=== PATIENT | female | born 1960 | race Caucasian/White ===

== ENCOUNTER 2024-10-07 11:03 | Observation (INO) ==
[2024-10-07] MEDS ORDERED: NovoLIN R (or HumuLIN R) SUBCUT PRN (11:45)
[2024-10-07 12:13] LABS: BASOPHILS # (AUTO) 0.1 X10^3/uL (0.0-0.1); BASOPHILS % (AUTO) 1.2 % (0.2-1.0); EOSINOPHILS # (AUTO) 0.1 x10^3/uL (0.0-0.2); HEMATOCRIT 34.9 % (36.0-47.0); HEMOGLOBIN 11.5 g/dL (12.0-16.0); LYMPHOCYTES # (AUTO) 1.7 X10^3/uL (1.3-2.9); MEAN CORPUSCULAR HEMOGLOBIN 29.7 pg (27.0-34.0); MEAN CORPUSCULAR HGB CONC 32.9 g/dL (33.0-35.0); MEAN CORPUSCULAR VOLUME 90.3 fL (80.0-100.0); MEAN PLATELET VOLUME 9.4 fL (7.4-11.0); MONOCYTES # (AUTO) 0.8 x10^3/uL (0.3-0.8); MONOCYTES % (AUTO) 7.5 % (0.0-13.0); NEUTROPHILS # (AUTO) 7.5 x10^3/uL (2.2-4.8); NEUTROPHILS % (AUTO) 73.3 % (42.0-75.0); PLATELET COUNT 328 X10^3/uL (150.0-450.0); RED BLOOD COUNT 3.87 X10^6/uL (3.5-5.4); RED CELL DISTRIBUTION WIDTH 13.5 % (11.6-16.5); WHITE BLOOD COUNT 10.2 X10^3/uL (3.6-10.0)
[2024-10-07] MEDS ORDERED: LR 1,000 ML IV 1,000 ML IV ONE (12:23)
[2024-10-07 12:26] LABS: HEMOGLOBIN A1C 6.8 %
[2024-10-07 12:28] LABS: ALANINE AMINOTRANSFERASE 21 Units/L (12-78); ALBUMIN 3.5 g/dL (3.4-5.0); ALKALINE PHOSPHATASE 193 Units/L (46-116); ASPARTATE AMINO TRANSFERASE 20 Units/L (15-37); BLOOD UREA NITROGEN 40 mg/dL (7-18); CALCIUM 9.3 mg/dL (8.5-10.1); CARBON DIOXIDE 25.9 mmol/L (21-32); CHLORIDE 109 mmol/L (98-107); COR NA(FOR HYPERGLY) 144 mmol/L (136-145); CREATININE 1.63 mg/dL (0.55-1.02); GLUCOSE 134 mg/dL (65-99); POTASSIUM 4.7 mmol/L (3.5-5.1); SODIUM 143 mmol/L (136-145); TOTAL PROTEIN 9.4 g/dL (6.4-8.2); eGFR NON BLACK RACES 34 (>60)
[2024-10-07] MEDS: LR 1,000 ML IV 1,000 ML IV SCH (13:19)
[2024-10-07] MEDS: PHARMACY CONSULT - VANCOMYCIN XX SCH (13:20)
[2024-10-07] MEDS ORDERED: NORCO 7.5/325 MG TAB PO ONE (13:30)
[2024-10-07] MEDS: NEURONTIN CAP 400 MG PO SCH ×2 (13:45→21:15)
[2024-10-07] MEDS: COREG TAB 12.5 MG PO ONE (13:45)
[2024-10-07] MEDS: NORCO 7.5/325 MG TAB PO PRN (13:46)
[2024-10-07] MEDS: VANCOMYCIN IV *PREMIX 1.25 G/250 ML BAG 1.25 G/250 ML PIGGYBACK IV SCH (13:47)
--- NOTE | 2024-10-07 13:50 | EKG ---
Test Reason : osteomyelitis Blood Pressure : */* mmHG Vent. Rate : 91 BPM Atrial Rate : 91 BPM P-R Int : 160 ms QRS Dur : 92 ms QT Int : 386 ms P-R-T Axes : 42 -13 31 degrees QTc Int : 474 ms Normal sinus rhythm Normal ECG No previous ECGs available Confirmed by Sourav Galarza MD ([id number]) on 10/08/2024 6:28:18 AM Referred By: Confirmed By: Sourav Galarza MD
[2024-10-07 14:03] VITALS: BMI 43.0
--- NOTE | 2024-10-07 15:48 | VAS ---
EXAM: LOWER EXT ARTERIAL HISTORY: PVD in setting of acute infection; OSTEOMYELITIS, FAILED OUTPATIENT THERAPY . COMPARISON: None available. TECHNIQUE: Ultrasound of bilateral lower extremity arteries was performed, including the common femoral, superficial femoral and popliteal arteries. When clinically applicable, the deep femoral, posterior tibial and/or anterior tibial artery were also evaluated. Color flow and spectral doppler imaging was utilized. Subjective analysis from pina-scale, waveform analysis and color flow imaging was used to estimate degree of stenosis. FINDINGS: RIGHT LOWER EXTREMITY: Proximal common femoral artery has a peak systolic velocity 101 cm/sec with a biphasic wave form. Proximal superficial femoral artery peak systolic velocity 105 cm/sec with a biphasic wave form. Mid superficial femoral artery peak systolic velocity 114 cm/sec with a triphasic wave form. Distal superficial femoral artery peak systolic velocity 70 cm/sec with a triphasic wave form. Proximal popliteal artery peak systolic velocity 90 cm/sec with a triphasic wave form. Distal popliteal artery peak systolic velocity 86 cm/sec with a triphasic wave form. Proximal posterior tibial artery peak systolic velocity 120 cm/sec with a monophasic wave form. Mid posterior tibial artery peak systolic velocity 42 cm/sec with a monophasic wave form. Distal posterior tibial artery peak systolic velocity 35 cm/sec with a monophasic wave form. DPA peak systolic velocity 38 cm/sec with monophasic wave form. LEFT LOWER EXTREMITY: Proximal common femoral artery has a peak systolic velocity 131 cm/sec with a biphasic wave form. Proximal superficial femoral artery peak systolic velocity 81 cm/sec with a triphasic wave form. Mid superficial femoral artery peak systolic velocity 123 cm/sec with a biphasic wave form. Distal superficial femoral artery peak systolic velocity 110 cm/sec with a biphasic wave form. Proximal popliteal artery peak systolic velocity 78 cm/sec with a triphasic wave form. Distal popliteal artery peak systolic velocity 72 cm/sec with a triphasic wave form. Proximal posterior tibial artery peak systolic velocity 20 cm/sec with a monophasic wave form. Mid posterior tibial artery peak systolic velocity 94 cm/sec with a monophasic wave form. Distal posterior tibial artery peak systolic velocity 40 cm/sec with a monophasic wave form. DPA peak systolic velocity 69 cm/sec with monophasic wave form. IMPRESSION: No focal high-grade stenosis or occlusion identified. Bilateral calf artery monophasic waveforms are compatible with at least mild peripheral vascular disease. THIS IS AN ELECTRONICALLY VERIFIED FINAL REPORT 10/07/2024 3:44 PM - Electronically signed by Bassam Barrios MD
[2024-10-07] MEDS: LOVENOX INJ 40 MG SYR SC SCH (16:50)
[2024-10-07] MEDS: DIOVAN TAB 160 MG PO ONE (18:00)
[2024-10-07] MEDS ORDERED: DIOVAN TAB 160 MG PO ONE (18:00)
[2024-10-07] MEDS: COREG TAB 12.5 MG PO SCH (20:38)
[2024-10-07] MEDS: LANTUS SC SCH (20:39)
[2024-10-07] MEDS: SNACK - Diabetic Appropriate PO SCH (20:41)
[2024-10-08 05:34] LABS: BASOPHILS # (AUTO) 0.1 X10^3/uL (0.0-0.1); EOSINOPHILS # (AUTO) 0.3 x10^3/uL (0.0-0.2); EOSINOPHILS % (AUTO) 3.6 % (0.9-2.9); HEMOGLOBIN 10.4 g/dL (12.0-16.0); LYMPHOCYTES # (AUTO) 1.6 X10^3/uL (1.3-2.9); LYMPHOCYTES % (AUTO) 18.1 % (21.0-51.0); MEAN CORPUSCULAR HEMOGLOBIN 30.3 pg (27.0-34.0); MEAN CORPUSCULAR HGB CONC 33.4 g/dL (33.0-35.0); MEAN CORPUSCULAR VOLUME 90.5 fL (80.0-100.0); MEAN PLATELET VOLUME 9.6 fL (7.4-11.0); MONOCYTES # (AUTO) 0.7 x10^3/uL (0.3-0.8); MONOCYTES % (AUTO) 8.5 % (0.0-13.0); NEUTROPHILS # (AUTO) 5.9 x10^3/uL (2.2-4.8); NEUTROPHILS % (AUTO) 68.8 % (42.0-75.0); PLATELET COUNT 280 X10^3/uL (150.0-450.0); RED BLOOD COUNT 3.43 X10^6/uL (3.5-5.4); RED CELL DISTRIBUTION WIDTH 13.8 % (11.6-16.5); WHITE BLOOD COUNT 8.6 X10^3/uL (3.6-10.0)
[2024-10-08 05:50] LABS: ALANINE AMINOTRANSFERASE 17 Units/L (12-78); ALBUMIN 2.9 g/dL (3.4-5.0); ALKALINE PHOSPHATASE 161 Units/L (46-116); ASPARTATE AMINO TRANSFERASE 17 Units/L (15-37); BLOOD UREA NITROGEN 37 mg/dL (7-18); CALCIUM 8.7 mg/dL (8.5-10.1); CARBON DIOXIDE 24.3 mmol/L (21-32); CHLORIDE 109 mmol/L (98-107); COR CA(FOR HYPOALB) 9.6 mg/dL (8.5-10.1); GLUCOSE 85 mg/dL (65-99); POTASSIUM 4.6 mmol/L (3.5-5.1); SODIUM 144 mmol/L (136-145); TOTAL PROTEIN 7.9 g/dL (6.4-8.2); eGFR NON BLACK RACES 40 (>60)
--- NOTE | 2024-10-08 07:25 | DR.CONSULT ---
CONSULT Consultation for Day of: Date: 10/08/24 Chief Complaint Chief Complaint: Infection Hallux, Left Allergies Allergies Allergy/AdvReac Type Severity Reaction Status Date / Time No Known Drug Allergies Allergy Verified 10/07/24 11:52 (NKDA) History of Present Illness History of Present Illness: Patient has been seeing Dr. Bird in the office for a hallux infection to the left foot. She has been doing antibiotics which have not worked. It was getting worse. This prompted Dr. Bird to have her admitted by Dr. Villalobos. VSS. WBC 10.2 on admission. 8.6 today. Cr was elevated. She was started on IV antibiotics. Arterial ultrasound was ordered. MRI was ordered. Past Surgical History Surgical History: Appendectomy and Hysterectomy Family History Family Medical History: Diabetes Mellitus, Cancer, GA and Hypertension Social History Does patient currently use any type of tobacco product: No Type of Tobacco Use: None Alcohol Use: None Drug Use: None Medications Home Medications: No Known Drug Allergies (NKDA) Allergy (Verified 10/07/24 11:52) CONTINUE taking the following medications amoxicillin 875 mg-potassium clavulanate 125 mg tablet 1 tab PO BID 10/07/24 [History] carvedilol 6.25 mg tablet 6.25 mg PO BID 10/07/24 [History] furosemide 20 mg tablet (Lasix) 20 mg PO BID 10/07/24 [History] gabapentin 800 mg tablet 800 mg PO HS 10/07/24 [History] insulin glargine 100 unit/mL (3 mL) subcutaneous pen (Lantus Solostar U-100 Insulin) 35 unit subcut BID 10/07/24 [History] nitroglycerin 0.4 mg sublingual tablet 0.4 mg sublingual USEASDIRECTD PRN 10/07/24 [History] potassium chloride 20 mEq tablet,extended release(part/cryst) 20 meq PO QDAY 10/07/24 [History] valsartan 160 mg tablet 160 mg PO QDAY 10/07/24 [History] Review of Systems Constitutional: See HPI Physical Exam Vital Signs: Vital Signs Temperature 97.7 F Temperature 97.9 F Pulse Rate [Right] 75 Pulse Rate [Right] 81 Respiratory Rate 18 Respiratory Rate 19 Blood Pressure [Left Arm] 156/70 Blood Pressure [Left Arm] 159/72 O2 Sat by Pulse Oximetry 96 O2 Sat by Pulse Oximetry 97 Oriented: Normal, Time and Person Skin: Other (Left hallux is inflamed with erythema and sausage appearing. Small wound to hallux. Small amount of drainage. ) Plan (1) Chronic multifocal osteomyelitis, left ankle and foot: Status: Acute Plan: - VSS. - WBC showed elevated. Downtrending now with IV antibiotics. - MRI ordered, obtained, not read. shows concern for distal phalanx OM of hallux. - Arterial US obtained. Shows my opinion posterior tibial trunk disease with monphasic waveforms. - Patient highly concerned with her CHF. - NPO. - To OR today for partial vs complete hallux of the left foot. (2) Peripheral vascular disease, unspecified: Status: Acute
[2024-10-08] MEDS: HIBICLENS WASH ONE (07:44)
[2024-10-08] MEDS: DIOVAN TAB 160 MG PO SCH (07:44)
[2024-10-08] MEDS: DIOVAN TAB 160 MG PO ONE (07:56)
[2024-10-08] MEDS: ASPIRIN EC 81 MG PO SCH (08:02)
[2024-10-08] MEDS: K-DUR TAB 20 MEQ PO SCH (08:03)
--- NOTE | 2024-10-08 08:08 | RAD ---
EXAM: CHEST, PA/LAT ADULT HISTORY: osteomyelitis; COMPARISON: No ne. TECHNIQUE: PA and lateral FINDINGS: Cardiomegaly. No focal consolidation, pleural effusion, or pneumothorax. IMPRESSION: No acute cardiopulmonary findings. Cardiomegaly. THIS IS AN ELECTRONICALLY VERIFIED FINAL REPORT 10/08/2024 8:04 AM - Electronically signed by Bassam Barrios MD
--- NOTE | 2024-10-08 08:30 | MRI ---
EXAM: MRI LEFT FOOT WITHOUT IV CONTRAST HISTORY: Wound to lt toe failed outpt tx, osteomyelitis; COMPARISON: None available TECHNIQUE: Multi planar series were obtained without IV contrast. FINDINGS: Exam mildly degraded by patient motion artifact. Mild diffuse foot atrophy. No focal soft tissue edema identified. No evidence of fluid collection. No abnormal marrow edema or evidence of marrow replacing process. No focal cortical destruction. 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 No significant joint effusion. IMPRESSION: Mild motion degraded study. No evidence of osteomyelitis or abscess. THIS IS AN ELECTRONICALLY VERIFIED FINAL REPORT 10/08/2024 8:18 AM - Electronically signed by Bassam Barrios MD
--- NOTE | 2024-10-08 09:15 | NOTE.SOAP ---
Soap Note Note for Day of Date of Exam: 10/08/24 Subjective Data Subjective Data: patietn with wound of the left hallux with distal soft tissue ulceration and clincal findings suggestive of osteo. failed outpatietn oral abx of augmentin and doxy, sent for direct admit due failed outpatietn abx with worsening infection and concern for osteo. Objective Data Objective Data: toe erythema improved with IV abx. no prox streaking. pulses non palpable to the foot. wound is 1.3cm x 1.0cm x 0.3cm with small amout of soft tissue endfeel under distal tip of the hallux. Assessment Assessment: 64 F with distal tuft osteo of the hallux. wound of distal tip of hallux. Plan Plan: will plan for wound debridement and excisional bx of the bone of the distal phalanx with internal phalanx partial amputation. she will likely be full WB after surgery in post op shoe and likely will be able to be D/[place] to home on oral abx and will follow cultures. patient grew peptostreptococcus outpatient. MRI reviewed. has some cortical changes on T1 consistent with early osteo. no focal edema but correlates directly to where wound is with soft tissue defect. Flow studies reviewed. patient will get set up with Dr. Darling as outpatient for likely intervention.
[2024-10-08] MEDS: XYLOCAINE 1% and EPINEPHRINE 1:100,000 ONE (10:54)
[2024-10-08] MEDS: BETADINE SOLN ONE (11:10)
[2024-10-08 16:04] VITALS: BP 144/79; PULSE 75; RESP 16; TEMP 98.9; O2SAT 98
[2024-10-08] MEDS ORDERED: GABAPENTIN 800 MG PO SCH (21:00)
[2024-10-09] MEDS ORDERED: K-DUR TAB 20 MEQ PO SCH (09:00)
[2024-10-09] MEDS ORDERED: LASIX PO SCH (09:00)
[2024-10-09] MEDS ORDERED: DIOVAN TAB 160 MG PO SCH (09:00)
[2024-10-10] MEDS ORDERED: PHARMACY COMMENT IV ONE (08:30)
== END 2024-10-08 13:15 | disposition home or self-care (01) ==
LOC: MED/SURG
PROVIDERS: ADMIT Obstetrics & Gynecology Obstetrics; ATTEND Obstetrics & Gynecology Obstetrics
DX: I10 Essential (primary) hypertension; Z79.4 Long term (current) use of insulin; E11.621 Type 2 diabetes mellitus with foot ulcer; L84 Corns and callosities; L97.528 Non-pressure chronic ulcer of other part of left foot with other specified severity; M89.8X7 Other specified disorders of bone, ankle and foot; E11.65 Type 2 diabetes mellitus with hyperglycemia